=== PATIENT | male | born 1990 | race Caucasian/White ===

== ENCOUNTER 2025-08-07 07:03 | Observation (INO) ==
[2025-08-07] MEDS: MIDAZOLAM HCL 5 MG/ML 2ML VIAL IV STA (07:28)
--- NOTE | 2025-08-07 07:41 | Emergency Department Note ---
Impression & Plan Acute alteration in mental status, Drug intoxication with delirium, Alcohol intoxication, Aggressive behavior ED Provider Note NAME: JENNIFER GRIFFITH AGE: 34 SEX: M : 1990 ARRIVES VIA: Ambulance INFORMANT: Patient, EMS ED PROVIDER(S): Noah So DO CHIEF COMPLAINT: Altered mental status HPI: The patient is a 34-year-old male who presented to the emergency department with excited delirium. History is obtained from the prehospital personnel as well as the police. The police were called to his home because the patient had ripped the washing machine out of the wall. Water was spilling all over the basement. The patient's mother called 911. When police arrived they found him on the floor. He became very combative. EMS was called and the patient was treated with IM ketamine for excited delirium. The patient presents to the emergency department in obtunded state. He is unable to be evaluated at this time. There is no history of any recent trauma. There is no history of recent illness but the prehospital personnel were unable to speak with the mother for short period of time. ROS: See above HPI for pertinent positives & negatives. A total of 10 systems reviewed and were otherwise negative. PAST MEDICAL HISTORY: See Below PAST SURGICAL HISTORY: See Below FAMILY HISTORY: See Below SOCIAL HISTORY: See Below HOME MEDICATIONS: See Below ALLERGIES: See Below VITALS: See Below PHYSICAL EXAMINATION: GENERAL: The patient is obtunded and yelling out loudly. He is not verbalizing or making sentences that are comprehensible. EYES: The conjunctivae are clear. The pupils are dilated and minimally reactive. EARS, NOSE, MOUTH AND THROAT: The nose is without any evidence of any deformity. Mucous membranes are dry. NECK: The neck is nontender and supple. RESPIRATORY: Normal respiratory effort is noted there is no evidence of wheezing rhonchi or rales CARDIOVASCULAR: Tachycardic and regular heart sounds were noted to auscultation. GASTROINTESTINAL: The abdomen is soft. Abdomen is nontender. MUSCULOSKELETAL/EXTREMITIES: There is no evidence of gross deformity full range of motion is noted in the hips and shoulders. SKIN: The skin is hot and diaphoretic. There is no pedal edema. Pulses are symmetric. NEUROLOGIC: GCS is 11. The patient is moving all extremities. Patellar tendon reflexes were 3+ bilaterally. MEDICAL DECISION MAKING: The patient is a 34-year-old male who presented to the emergency department by ambulance for an evaluation of aggressive behavior and alteration of mental status. The patient was felt to be under the influence of drugs or alcohol. The patient was sedated using ketamine prior to arrival using the expected delirium protocol. Once the patient was more easily assessed IV line was placed and labs are drawn. The patient was reevaluated multiple times. It was unclear if there was any trauma involved with the patient's presentation. After the patient was found to have no acute intracranial process he was starting to become much more coherent. He did admit to using Magic mushrooms and attempt to become intoxicated. He also had alcohol in his system. The patient was started become more lucid but he was still not able to be medically cleared. I discussed the patient's condition with the on-call [facility]. They have agreed to evaluate the patient in the emergency department for further management and disposition. Triage Nursing notes reviewed. Prior medical records reviewed Vital Signs: reviewed and remarkable for elevated blood pressure. Differential diagnosis: Infection, hypoglycemia, electrolyte abnormalities, overdose, toxicologic, cardiac sources, intracerebral event, neurologic, trauma, as well as other pathologies. ER treatment provided: See below Diagnostics interpreted by me: ECG: EKG was obtained in the emergency department. My interpretation is normal sinus rhythm at 93 bpm. There is no ectopy. There is no acute ST segment abnormalities noted. QTc was 452 ms. Cardiac Monitoring: An order was placed for continuous cardiac monitoring. The monitor shows a rate of 81 bpm with sinus rhythm. Laboratory studies: As stated above and show below. Imaging studies: See below. Radiographic imaging was reviewed by myself Consultation(s): I discussed this case with Dr. Michaud who is on-call for the [facility] group. ED COURSE: Procedures: none Critical Care: I have personally spent greater than 45 minutes of critical care time in the direct management of this patient. This includes bedside care, interpretation of diagnostic studies, and testing, discussion with consultants, patient, and family members, and other required patient management activities. This 45 minutes is in excess of all separately billable procedures. Past Med/Surg History Problem List (Updated 08/07/25 @ 11:21 by Noah So DO) Aggressive behavior (Acute) Acute alteration in mental status (Acute) Alcohol intoxication (Acute) Drug intoxication with delirium (Acute) Chronic prescription opiate use Drug addiction No significant past surgical history No significant past medical history Social History Smoking Status: Unknown if ever smoked Tobacco Type: Cigarettes Preferred Language: Latvian marital status: Single current occupational status: employed Feels Safe at Home: Declines to Answer Allergies Allergies Allergy/AdvReac Type Severity Reaction Status Date / Time No Known Allergies Allergy Mild Verified 09/24/23 17:42 Home Meds Home Medications Medication Instructions Recorded Confirmed methadone 10 mg tablet 90 mg PO DAILY 08/07/25 08/07/25 Results & Data (ED) Vital Signs Vital Signs - 24 hr 08/07/25 07:05 08/07/25 07:05 08/07/25 07:12 Temperature 37.1 C Temperature Source Oral Pulse Rate 91 H 103 H Pulse Rate from SpO2 Sensor Respiratory Rate 28 H Respiratory Effort / Characteristics Non-Labored Spontaneous Respiratory Depth Shallow Blood Pressure Blood Pressure Mean Pulse Oximetry 88 L 88 L Oxygen Delivery Method Room Air Room Air Sepsis Recent Fever Within 48 Hours No Sepsis New/Unexplained Change in Mental Status No Sepsis Action Taken by Nursing No Action Required End-Tidal CO2 Oxygen Flow Rate - Titration Pulse Oximetry Post Tiitration 08/07/25 07:18 08/07/25 07:24 08/07/25 07:30 Temperature Temperature Source Pulse Rate 84 83 Pulse Rate from SpO2 Sensor 84 84 Respiratory Rate 22 16 Respiratory Effort / Characteristics Respiratory Depth Blood Pressure Blood Pressure Mean Pulse Oximetry 92 96 88 L Oxygen Delivery Method Room Air Sepsis Recent Fever Within 48 Hours Sepsis New/Unexplained Change in Mental Status Sepsis Action Taken by Nursing End-Tidal CO2 48 35 Oxygen Flow Rate - Titration 4 Pulse Oximetry Post Tiitration 96 08/07/25 07:31 08/07/25 07:54 08/07/25 08:15 Temperature Temperature Source Pulse Rate 87 Pulse Rate from SpO2 Sensor 87 90 Respiratory Rate 21 20 Respiratory Effort / Characteristics Respiratory Depth Blood Pressure 136/108 H Blood Pressure Mean 126 Pulse Oximetry 96 92 Oxygen Delivery Method Sepsis Recent Fever Within 48 Hours Sepsis New/Unexplained Change in Mental Status Sepsis Action Taken by Nursing End-Tidal CO2 56 Oxygen Flow Rate - Titration Pulse Oximetry Post Tiitration 08/07/25 08:23 08/07/25 08:30 08/07/25 08:30 Temperature Temperature Source Pulse Rate 85 Pulse Rate from SpO2 Sensor 89 Respiratory Rate Respiratory Effort / Characteristics Respiratory Depth Blood Pressure 170/118 H 180/115 H Blood Pressure Mean 132 137 Pulse Oximetry 93 Oxygen Delivery Method Sepsis Recent Fever Within 48 Hours Sepsis New/Unexplained Change in Mental Status Sepsis Action Taken by Nursing End-Tidal CO2 Oxygen Flow Rate - Titration Pulse Oximetry Post Tiitration 08/07/25 08:45 08/07/25 08:45 08/07/25 09:00 Temperature Temperature Source Pulse Rate 100 H 86 Pulse Rate from SpO2 Sensor 99 H 87 Respiratory Rate 13 16 Respiratory Effort / Characteristics Respiratory Depth Blood Pressure 196/145 H Blood Pressure Mean 165 Pulse Oximetry 93 92 Oxygen Delivery Method Sepsis Recent Fever Within 48 Hours Sepsis New/Unexplained Change in Mental Status Sepsis Action Taken by Nursing End-Tidal CO2 49 31 Oxygen Flow Rate - Titration Pulse Oximetry Post Tiitration 08/07/25 09:00 08/07/25 09:30 08/07/25 09:30 Temperature Temperature Source Pulse Rate 81 Pulse Rate from SpO2 Sensor 82 Respiratory Rate 14 Respiratory Effort / Characteristics Respiratory Depth Blood Pressure 166/96 H 142/93 H Blood Pressure Mean 115 118 Pulse Oximetry 94 Oxygen Delivery Method Sepsis Recent Fever Within 48 Hours Sepsis New/Unexplained Change in Mental Status Sepsis Action Taken by Nursing End-Tidal CO2 48 Oxygen Flow Rate - Titration Pulse Oximetry Post Tiitration Home Medications Current Medication List: was personally reviewed by me Laboratory Data Attestation: I reviewed the patient's lab results. 08/07/25 07:25 08/07/25 07:25 Lab Results 08/07/25 08/07/25 08/07/25 Range/Units 07:25 08:16 08:43 WBC 4.96 (4.8-10.8) K/ul RBC 4.91 (4.70-6.10) M/uL Hgb 16.5 (14.0-18.0) g/dl Hct 46.4 (42.0-52.0) % MCV 94.5 (80.0-100.0) fL MCH 33.6 (25.0-34.0) pg MCHC 35.6 (32.0-36.0) g/dL RDW Std Deviation 45.0 (36.4-46.3) fL RDW Coeff of Sheron 13.1 (11.5-14.5) % Plt Count 126 L (130-400) K/uL MPV 11.0 (9.4-12.4) fL Immature Gran % (Auto) 0.8 % Neut % (Auto) 70.6 % Lymph % (Auto) 14.1 % Stewart % (Auto) 12.3 % Eos % (Auto) 1.0 % Baso % (Auto) 1.2 % Neut # (Auto) 3.50 (1.40-6.50) K/uL Lymph # (Auto) 0.70 L (1.20-3.40) K/uL Stewart # (Auto) 0.61 H (0.11-0.59) K/uL Eos # (Auto) 0.05 (0.00-0.50) K/uL Baso # (Auto) 0.06 (0.00-0.20) K/uL Immature Gran # (Auto) 0.04 (0.01-0.20) K/uL PT 10.8 (9.0-12.0) Seconds INR 1.0 (0.9-1.1) APTT 30 (21-31) Seconds PTT Ratio 1.1 VBG pH 7.31 L (7.36-7.41) VBG pCO2 53 H (38-50) mmHg VBG pO2 48 mmHg VBG HCO3 27 mmol/L VBG O2 Saturation 79.9 % VBG Base Excess -0.8 mEq/L Sodium 138 (136-145) mmol/L Potassium 4.1 (3.5-5.1) mmol/L Chloride 103 (98-107) mmol/L Carbon Dioxide 25 (21-32) mmol/L Anion Gap 10 (3-11) BUN 13 (6-23) mg/dl Creatinine 1.02 (0.6-1.4) mg/dl Est Cr Clr Drug Dosing Not Reportable eGFR 99.52 BUN/Creatinine Ratio 12.7 (10-20) Glucose 96 (70-99(Fasting)) mg/dl Osmolality 342 H (280-300) mOsm/kg Calcium 9.3 (8.6-10.3) mg/dl Total Bilirubin 0.7 (0.2-1.0) mg/dl AST 73 H (13-39) U/L ALT 83 H (7-52) U/L Alkaline Phosphatase 106 H (34-104) U/L Total Creatine Kinase 382 H (30-223) U/L Troponin I High Sens 4.2 (0-20) pg/ml Total Protein 8.1 (6.0-8.3) gm/dl Albumin 4.7 (3.4-5.0) gm/dl Globulin 3.4 (2.5-4.0) gm/dl Albumin/Globulin Ratio 1.4 (0.9-2) Lipase 12 (11-82) U/L Procalcitonin 0.06 (0-0.5) ng/ml Urine Color Yellow Urine Appearance Clear (Clear) Urine pH 6.0 (4.5-7.5) Ur Specific [place] 1.044 H (1.000-1.030) Urine Protein 1+ H (Negative) Urine Glucose (UA) Negative (Negative) Urine Ketones Negative (Negative) Urine Blood 2+ H (Negative) Urine Nitrite Negative (Negative) Urine Bilirubin Negative (Negative) Urine Urobilinogen Negative (Negative) Ur Leukocyte Esterase Negative (Negative) Urine WBC (Auto) 0-5 (0-5) /hpf Urine RBC (Auto) 0-2 (0-2) /hpf U Hyaline Cast (Auto) 3-5 H (0-2) /lpf U Epithel Cells (Auto) 0-2 (0-2) /hpf Urine Bacteria (Auto) None Seen (None Seen) Urine Comment Salicylates < 3.0 L (3.0-30) mg/dl Urine Opiates Screen Neg (Neg) Ur Methadone, Qual Pos H (Neg) Urine Fentanyl Screen Neg (Neg) Acetaminophen < 3 L (10-30) ug/ml Urine Barbiturates Neg (Neg) Ur Phencyclidine (PCP) Neg (Neg) U Amphetamin/Meth Scrn Neg (Neg) MDMA (Ecstasy) Screen Neg (Neg) U Benzodiazepines Scrn Pos H (Neg) Ur Cocaine Metabolite Neg (Neg) U Marijuana (THC) Screen Neg (Neg) Ethyl Alcohol mg/dL 145.2 H (<10.0) mg/dl Administered Medications Discontinued Medications Thiamine HCl 500 mg/ Sodium (Chloride) 55 mls @ 210 mls/hr IV NOW STA Stop: 08/07/25 08:40 Last Infusion: 08/07/25 10:59 Dose: Infused Documented By: Admin: 08/07/25 09:21 Dose: 210 mls/hr Documented By: MICHELLE Sodium Chloride (Nss) 1,000 mls @ 999 mls/hr IV .Q1H1M ONE Stop: 08/07/25 09:31 Last Infusion: 08/07/25 10:59 Dose: Infused Documented By: Admin: 08/07/25 09:21 Dose: 999 mls/hr Documented By: MICHELLE Ioversol (Optiray 320 100ml) 94 ml IV ONCE ONE Stop: 08/07/25 07:55 Last Admin: 08/07/25 07:54 Dose: 94 ml Documented By: WALT Midazolam HCl (Midazolam Hcl 5 Mg/Ml 2ml Vial) 4 mg IV NOW STA Stop: 08/07/25 07:20 Last Admin: 08/07/25 07:28 Dose: 2 mg Documented By: CEF Imaging Data Attestation: I personally reviewed and interpreted this imaging study as follows: My Impression: 1 view chest x-ray was obtained in the emergency department. My interpretation is no free air or definite infiltrate, final report below. CT the brain was obtained in the emergency department. My interpretation is no intracranial hemorrhage or mass effect, final report below. Radiologist's Impression: Abdomen/Pelvis CT 08/07/25 07:10 CT SCAN OF THE ABDOMEN AND PELVIS WITH IV CONTRAST CLINICAL HISTORY: Trauma. COMPARISON STUDY: CT of the abdomen and pelvis June 25, 2007. TECHNIQUE: Following the IV administration of 94 cc of Optiray 320, CT scan of the abdomen and pelvis is performed from the lung bases to the proximal femora. Images are reviewed in the axial, sagittal, and coronal planes. IV contrast was administered without complication. A dose lowering technique was utilized adhering to the principles of ALARA. FINDINGS: This exam is mildly compromised by motion artifact. No hemoperitoneum or pneumoperitoneum is present. There is no evidence for traumatic injury to the liver, spleen, adrenal glands, kidneys or pancreas. Mild splenomegaly is similar to prior CT. Prominent peripancreatic and brittany hepatis lymph nodes are likely benign. Index peripancreatic lymph node on image 108 of 449 measures 2.4 x 1.4 cm. These nodes were normal in size on prior CT. Caliber and wall thickness of small and large bowel are normal. There is no pelvic lymphadenopathy. No acute fractures within the lumbar spine, pelvis or hips are identified. IMPRESSION: 1. No acute traumatic findings within the abdomen or pelvis. Exam mildly compromised by motion artifact. 2. Several mildly enlarged upper abdominal lymph nodes. These are likely benign. A follow-up CT of the abdomen and pelvis in 6 months to ensure stability is recommended. 3. Stable mild splenomegaly. ACT 112: Negative or not required by law. Electronically signed by: Melvin Carvajal M.D. 08/07/2025 9:[address] 08/07/25 07:10 CT SCAN OF THE CERVICAL SPINE CLINICAL HISTORY: Trauma. COMPARISON STUDY: Cervical spine CT June 25, 2007. TECHNIQUE: CT scan of the cervical spine is performed from the skull base to the upper thoracic spine. Images are reviewed in the axial, sagittal, and coronal planes. IV contrast was not administered for this examination. A dose lowering technique was utilized adhering to the principles of ALARA. CT DOSE: 1682.2 mGy.cm FINDINGS: Skeletal structures: This exam is mildly compromised given difficulty positioning. There is no evidence of fracture or subluxation involving the cervical spine. Vertebral body height and alignment are maintained. The odontoid process and lateral masses are intact. The atlantoaxial articulation is preserved. The spinous processes appear intact. Corticated lucency through the T1 spinous process is unchanged. This is chronic. There is mild multilevel disc space narrowing and endplate osteophytosis within the cervical spine. Soft tissues: The prevertebral and paraspinous soft tissues are within normal limits. Calvarium: The visualized calvarium at the skull base appears intact. Brain parenchyma: Partially visualized brain parenchyma at the skull base is within normal limits. Lung apices: Clear as visualized. IMPRESSION: No acute cervical spine fracture or subluxation. Exam mildly compromised given difficulty positioning. ACT 112: Negative or not required by law. Electronically signed by: Melvin Carvajal M.D. 08/07/2025 8:[address] 08/07/25 07:10 CT SCAN OF THE CHEST WITH IV CONTRAST CLINICAL HISTORY: Trauma. COMPARISON STUDY: Chest CT June 25, 2007. TECHNIQUE: Following the IV administration of cc of Optiray 320, CT scan of the thorax was performed from the thoracic inlet to the upper abdomen. Images are reviewed in the axial, sagittal, and coronal planes. IV contrast was administered without complication. A dose lowering technique was utilized adhering to the principles of ALARA. CT DOSE: 2818.48 mGy.cm FINDINGS: There is no evidence for traumatic injury to the thoracic aorta. Size of the heart is normal. There is no pericardial effusion. No pneumothorax, pleural effusion or pulmonary contusion is present. No rib fractures are identified although sensitivity is diminished given motion artifact.. There are no thoracic spine fractures. IMPRESSION: No acute traumatic findings within the chest. Exam mildly compromised by motion artifact. ACT 112: Negative or not required by law. Electronically signed by: Melvin Carvajal M.D. 08/07/2025 8:57 AM Chest X-Ray 08/07/25 07:10 PORTABLE SUPINE AP CHEST RADIOGRAPH CLINICAL HISTORY: Trauma COMPARISON STUDY: Chest CT June 25, 2007. Chest radiograph May 06, 2015. Chest CT performed earlier today. FINDINGS: No pneumothorax or pleural effusion is identified on supine exam. Low lung volumes are likely related to supine technique. No airspace opacities are present. Cardiac mediastinal silhouette is unremarkable IMPRESSION: No acute cardiopulmonary findings. ACT 112: Negative or not required by law. Electronically signed by: Melvin Carvajal M.D. 08/07/2025 8:[address] 08/07/25 07:10 CT SCAN OF THE BRAIN WITHOUT IV CONTRAST CLINICAL HISTORY: Trauma. COMPARISON STUDY: Head CT June 25, 2007. TECHNIQUE: Unenhanced axial CT scan of the brain was performed from the vertex to the skull base. A dose lowering technique was utilized adhering to the principles of ALARA. FINDINGS: This exam is moderately compromised by motion artifact. No acute intracranial hemorrhage, midline shift or mass effect is present. Ventricular system is unremarkable. Basal cisterns are patent. There are no extra-axial collections. A small posterior scalp contusion is present. There is no calvarial fracture. There is mild ethmoid sinus mucosal thickening. IMPRESSION: 1. No acute intracranial findings. Moderate motion artifact. 2. Small posterior scalp contusion. No calvarial fractures. ACT 112: Negative or not required by law. Electronically signed by: Melvin Carvajal M.D. 08/07/2025 8:48 AM Wrist X-Ray 08/07/25 10:14 XR wrist RT min 3V routine CLINICAL HISTORY: Right wrist pain and swelling following trauma. COMPARISON: Right hand radiographs April 19, 2024. FINDINGS: Old, healed fractures of the right fourth and fifth metacarpals are noted. There is distal right forearm and wrist soft tissue swelling. A tiny ossicle along the medial distal right radius is unchanged since radiographs of April 19, 2024. No acute fractures within the right wrist are identified. Carpal bones are intact. IMPRESSION: 1. No acute fracture or dislocation within the right wrist. 2. Distal right forearm and wrist soft tissue swelling. 3. Old, healed right fourth and fifth metacarpal fractures. ACT 112: Negative or not required by law. Electronically signed by: Melvin Carvajal M.D. 08/07/2025 10:41 AM Elbow X-Ray 08/07/25 10:18 XR elbow RT min 3V routine CLINICAL HISTORY: Right elbow pain following trauma. COMPARISON: Right forearm radiographs September 24, 2023. FINDINGS: Alignment of the right elbow is anatomic. There is no acute fracture. There is no evidence for a joint effusion. Joint spaces are preserved. IMPRESSION: No fractures within the right elbow. No evidence for a joint effusion. ACT 112: Negative or not required by law. Electronically signed by: Melvin Carvajal M.D. 08/07/2025 10:34 AM Forearm X-Ray 08/07/25 10:18 XR forearm RT 2V CLINICAL HISTORY: Right forearm pain following trauma. COMPARISON: Right forearm radiographs 09/24/2023. FINDINGS: There are no fractures within the right radius or ulna. Alignment of the right elbow is anatomic. There is no evidence for joint effusion. There are old fractures of the right fourth and fifth metacarpals. Slight deformity of the distal right radius is likely chronic. There is distal right forearm and wrist soft tissue swelling. IMPRESSION: 1. No acute fractures within the right radius or ulna. 2. Distal right forearm and wrist soft tissue swelling. ACT 112: Negative or not required by law. Electronically signed by: Melvin Carvajal M.D. 08/07/2025 10:39 AM Discharge Plan Visit Data Chief Complaint: Mental Health Evaluation ED Provider: Noah So Discharge Problem: Acute alteration in mental status, Drug intoxication with delirium, Alcohol intoxication, Aggressive behavior Patient Disposition: Admitted As Inpatient Condition: Fair Discharge Instructions Interventions: ED Discharge Assessment Last Done: 08/07/25 10:59 Forms Stand Alone Forms: [facility], Suicide Prevention Resources Prescriptions Prescriptions: No Action methadone 10 mg Tablet 90 mg PO DAILY Referrals Referrals: PCP,NO [Primary Care Provider] -
[2025-08-07 07:47] LABS: Hematocrit (blood only) 46.4 % (42.0-52.0); Hemoglobin 16.5 g/dl (14.0-18.0); Immature Granulocytes # (auto) 0.04 K/uL (0.01-0.20); Immature Granulocytes % (auto) 0.8 %; Mean Corpuscular Hemoglobin 33.6 pg (25.0-34.0); Mean Corpuscular Volume 94.5 fL (80.0-100.0); Platelet Count 126 K/uL (130-400); RDW Standard Deviation 45.0 fL (36.4-46.3); Red Blood Count 4.91 M/uL (4.70-6.10); White Blood Count 4.96 K/ul (4.8-10.8)
[2025-08-07] MEDS: OPTIRAY 320 100ml IV ONE (07:54)
[2025-08-07 08:06] LABS: Alanine Aminotransferase 83 U/L (7-52); Albumin Globulin Ratio 1.4 (0.9-2); Alkaline Phosphatase 106 U/L (34-104); Anion Gap 10 (3-11); Bilirubin,Total 0.7 mg/dl (0.2-1.0); Blood Urea Nitrogen 13 mg/dl (6-23); Calcium 9.3 mg/dl (8.6-10.3); Carbon Dioxide 25 mmol/L (21-32); Chloride 103 mmol/L (98-107); Creatine Kinase 382 U/L (30-223); Globulin 3.4 gm/dl (2.5-4.0); Glucose 96 mg/dl (70-99(Fasting)); Lipase 12 U/L (11-82); Potassium 4.1 mmol/L (3.5-5.1); Sodium 138 mmol/L (136-145); Total Protein 8.1 gm/dl (6.0-8.3)
[2025-08-07 08:19] LABS: INR 1.0 (0.9-1.1); Partial Thromboplastin Time 30 Seconds (21-31); Prothrombin Time 10.8 Seconds (9.0-12.0)
[2025-08-07 08:34] LABS: Base Excess VBG -0.8 mEq/L; HCO3 VBG 27 mmol/L; Oxygen Saturation VBG 79.9 %; PCO2 VBG 53 mmHg (38-50); PO2 VBG 48 mmHg; pH VBG 7.31 (7.36-7.41)
--- NOTE | 2025-08-07 08:44 | XRay Report ---
PORTABLE SUPINE AP CHEST RADIOGRAPH CLINICAL HISTORY: Trauma COMPARISON STUDY: Chest CT June 25, 2007. Chest radiograph May 06, 2015. Chest CT performed earlier today. FINDINGS: No pneumothorax or pleural effusion is identified on supine exam. Low lung volumes are like ly related to supine technique. No airspace opacities are present. Cardiac mediastinal silhouette is unremarkable IMPRESSION: No acute cardiopulmonary findings. ACT 112: Negative or not required by law. Electronically signed by: Melvin Carvajal M.D. 08/07/2025 8:43 AM
--- NOTE | 2025-08-07 08:51 | CT Scan Report ---
CT SCAN OF THE BRAIN WITHOUT IV CONTRAST CLINICAL HISTORY: Trauma. COMPARISON STUDY: Head CT June 25, 2007. TECHNIQUE: Unenhanced axial CT scan of the brain was performed from the vertex to the skull base. A dose lowering technique was utilized adhering to the principles of ALARA. FINDINGS: This exam is moderately compromised by motion artifact. No acute intracranial hemorrhage, m idline shift or mass effect is present. Ventricular system is unremarkable. Basal cisterns are patent . There are no extra-axial collections. A small posterior scalp contusion is present. There is no elsie varial fracture. There is mild ethmoid sinus mucosal thickening. IMPRESSION: 1. No acute intracranial findings. Moderate motion artifact. 2. Small posterior scalp contusion. No calvarial fractures. ACT 112: Negative or not required by law. Electronically signed by: Melvin Carvajal M.D. 08/07/2025 8:48 AM
--- NOTE | 2025-08-07 08:52 | CT Scan Report ---
CT SCAN OF THE CERVICAL SPINE CLINICAL HISTORY: Trauma. COMPARISON STUDY: Cervical spine CT June 25, 2007. TECHNIQUE: CT scan of the cervical spine is performed from the skull base to the upper thoracic spine . Images are reviewed in the axial, sagittal, and coronal planes. IV contrast was not administered fo r this examination. A dose lowering technique was utilized adhering to the principles of ALARA. CT DOSE: 1682.2 mGy.cm FINDINGS: Skeletal structures: This exam is mildly compromised given difficulty positioning. There is no eviden ce of fracture or subluxation involving the cervical spine. Vertebral body height and alignment are m aintained. The odontoid process and lateral masses are intact. The atlantoaxial articulation is pres erved. The spinous processes appear intact. Corticated lucency through the T1 spinous process is unch anged. This is chronic. There is mild multilevel disc space narrowing and endplate osteophytosis with in the cervical spine. Soft tissues: The prevertebral and paraspinous soft tissues are within normal limits. Calvarium: The visualized calvarium at the skull base appears intact. Brain parenchyma: Partially visualized brain parenchyma at the skull base is within normal limits. Lung apices: Clear as visualized. IMPRESSION: No acute cervical spine fracture or subluxation. Exam mildly compromised given difficulty positioning. ACT 112: Negative or not required by law. Electronically signed by: Melvin Carvajal M.D. 08/07/2025 8:51 AM
--- NOTE | 2025-08-07 08:59 | CT Scan Report ---
CT SCAN OF THE CHEST WITH IV CONTRAST CLINICAL HISTORY: Trauma. COMPARISON STUDY: Chest CT June 25, 2007. TECHNIQUE: Following the IV administration of cc of Optiray 320, CT scan of the thorax was performed from the thoracic inlet to the upper abdomen. Images are reviewed in the axial, sagittal, and coronal planes. IV contrast was administered without complication. A dose lowering technique was utilized a dhering to the principles of ALARA. CT DOSE: 2818.48 mGy.cm FINDINGS: There is no evidence for traumatic injury to the thoracic aorta. Size of the heart is zaria l. There is no pericardial effusion. No pneumothorax, pleural effusion or pulmonary contusion is pres ent. No rib fractures are identified although sensitivity is diminished given motion artifact.. There are no thoracic spine fractures. IMPRESSION: No acute traumatic findings within the chest. Exam mildly compromised by motion artifact. ACT 112: Negative or not required by law. Electronically signed by: Melvin Carvajal M.D. 08/07/2025 8:57 AM
[2025-08-07 09:10] LABS: Appearance Urine Clear (Clear); Bacteria Urine Automated None Seen (None Seen); Epithelial Cell Urine Auto 0-2 /hpf (0-2); Glucose Urine UA Negative (Negative); RBC Urine Automated 0-2 /hpf (0-2); WBC Urine Automated 0-5 /hpf (0-5)
--- NOTE | 2025-08-07 09:10 | CT Scan Report ---
CT SCAN OF THE ABDOMEN AND PELVIS WITH IV CONTRAST CLINICAL HISTORY: Trauma. COMPARISON STUDY: CT of the abdomen and pelvis June 25, 2007. TECHNIQUE: Following the IV administration of 94 cc of Optiray 320, CT scan of the abdomen and pelvi s is performed from the lung bases to the proximal femora. Images are reviewed in the axial, sagittal , and coronal planes. IV contrast was administered without complication. A dose lowering technique wa s utilized adhering to the principles of ALARA. FINDINGS: This exam is mildly compromised by motion artifact. No hemoperitoneum or pneumoperitoneum i s present. There is no evidence for traumatic injury to the liver, spleen, adrenal glands, kidneys or pancreas. Mild splenomegaly is similar to prior CT. Prominent peripancreatic and brittany hepatis lymph nodes are likely benign. Index peripancreatic lymph node on image 108 of 449 measures 2.4 x 1.4 cm. These nodes were normal in size on prior CT. Caliber and wall thickness of small and large bowel are normal. There is no pelvic lymphadenopathy. No acute fractures within the lumbar spine, pelvis or hip s are identified. IMPRESSION: 1. No acute traumatic findings within the abdomen or pelvis. Exam mildly compromised by motion artifa ct. 2. Several mildly enlarged upper abdominal lymph nodes. These are likely benign. A follow-up CT of th e abdomen and pelvis in 6 months to ensure stability is recommended. 3. Stable mild splenomegaly. ACT 112: Negative or not required by law. Electronically signed by: Melvin Carvajal M.D. 08/07/2025 9:08 AM
[2025-08-07] MEDS: SODIUM CHLORIDE 0.9% 1,000 ML IV ONE (09:21)
[2025-08-07] MEDS: THIAMINE HCL 500 MG in SODIUM CHLORIDE 0.9% 50 ML IV STA (09:21)
[2025-08-07 09:30] LABS: Acetaminophen < 3 ug/ml (10-30); Salicylate < 3.0 mg/dl (3.0-30)
[2025-08-07 09:33] LABS: Amphetamines+Metham, Urine Neg (Neg); MDMA (Ecstacy), Urine Neg (Neg); Marijuana, Urine Neg (Neg)
--- NOTE | 2025-08-07 10:34 | History & Physical Report ---
Date of Service August 07, 2025 Assessment & Plan (1) Chronic prescription opiate use: (2) Drug intoxication with delirium: (3) Alcohol intoxication: Plan 34 year old male presents to the ER with altered mental status, agitation, given ketamine by EMS Altered mental state Secondary to taking mushrooms, alcohol intoxication and ketamine with EMS Improved dramatically over hours and now appears awake and alert, diet ordered Will continue to observe overnight Alcohol use disorder / current intoxication Monitor for alcohol withdrawal Opiate use disorder Restart methadone now patient more awake Mild rhabdomyolysis CK 382, IV fluids, repeat with AM labs VTE Prophylaxis - low risk, encourage ambulation Disposition - admit to PCU Admission and Anticipated Discharge Date Admission Date: August 07, 2025 History of Present Illness Chief Complaint: Altered mental status Primary Care Provider: NO PCP Brock Garrison is a 34 year old male who presents to the ER due to agitation. When patient initially seen he was unable to give any story, following one step commands, eyes blood shot, pupils dilated with horizontal bilateral nystagmus in both eyes, some rigidity but no clonus. On repeat examination he had woken up, agitation and rigidity resolved. He reports he drinks a 6 pack of 8% beer a day, never had any issues with alcohol withdrawal. He thinks last night he drank alcohol and took mushrooms but cannot remember what happened this morning. No answer on mothers phone with number in chart for collateral history. Collateral history from ER physician and ambulance notes - police called to his house by his mother because the patient ripped the washing machine out of the wall, water spilling all over basement, mother called 911, found on floor by police and became combative, EMS called and treated with IM ketamine - obtunded when he first came to the ER. Allergies Allergy/AdvReac Type Severity Reaction Status Date / Time No Known Allergies Allergy Mild Verified 09/24/23 17:42 Home Medications Medication Instructions Recorded Confirmed Type methadone 10 mg tablet 90 mg PO DAILY 08/07/25 08/07/25 History Past Med/Surg History Problem List (Updated 08/07/25 @ 11:21 by Noah So DO) Aggressive behavior (Acute) Acute alteration in mental status (Acute) Alcohol intoxication (Acute) Drug intoxication with delirium (Acute) Chronic prescription opiate use Drug addiction No significant past surgical history No significant past medical history Social History Smoking Status: Current every day smoker Tobacco Type: Cigarettes Hx Alcohol Use: Yes Alcohol type: beer Hx Substance Use: Yes Last Used Substance Other:: 08/07 Substance Use Type Other:: mushrooms Preferred Language: Turkish Communication Ability: Effective Quality Systems Technician Required: No Beliefs That Will Affect Care: None marital status: Single Current Living Situation: Family current occupational status: employed Feels Safe at Home: Yes Safety Concerns: Feels Safe At This Time Assistive Devices: None Review of Systems Review of Systems: Unobtainable due to cognitive status Physical Exam Constitutional: well developed and + acute distress Eyes: pupils bilaterally dilated - unable to tell reaction as patient actively closing eyes, erythematous bilateral conjunctiva Respiratory: normal respiratory effort, lungs clear to auscultation Cardiovascular: Rate/Rhythm: regular rhythm and + tachycardic Gastrointestinal (Abdomen): normal bowel sounds, soft, nontender, no hepatosplenomegaly Neurologic: moves all extremities (following one step commands), awake and + confused Cranial Nerves: normal facial strength; + EOM not intact (bilateral horizontal nystagmus present) Generalized rigiditiy Psychiatric: Orientation: alert; + not oriented x 3 Results & Data Results & Data Vital Signs (Past 12 Hours) Vital Signs Temp Pulse Resp BP Pulse Ox O2 Del Method 08/07/25 09:30 81 14 94 08/07/25 09:30 142/93 H 08/07/25 09:00 166/96 H 08/07/25 09:00 86 16 92 08/07/25 08:45 100 H 13 93 08/07/25 08:45 196/145 H 08/07/25 08:30 180/115 H 08/07/25 08:30 85 93 08/07/25 08:23 170/118 H 08/07/25 08:15 87 20 92 08/07/25 07:54 21 96 08/07/25 07:31 136/108 H 08/07/25 07:30 88 L Room Air 08/07/25 07:24 83 16 96 08/07/25 07:18 84 22 92 08/07/25 07:12 103 H 08/07/25 07:05 88 L Room Air 08/07/25 07:05 37.1 C 91 H 28 H 88 L Room Air Laboratory Results Abnormal lab results 08/07/25 08/07/25 08/07/25 Range/Units 07:25 08:16 08:43 Plt Count 126 L (130-400) K/uL Lymph # (Auto) 0.70 L (1.20-3.40) K/uL [place] # (Auto) 0.61 H (0.11-0.59) K/uL VBG pH 7.31 L (7.36-7.41) VBG pCO2 53 H (38-50) mmHg Osmolality 342 H (280-300) mOsm/kg AST 73 H (13-39) U/L ALT 83 H (7-52) U/L Alkaline Phosphatase 106 H (34-104) U/L Total Creatine Kinase 382 H (30-223) U/L Ur Specific [place] 1.044 H (1.000-1.030) Urine Protein 1+ H (Negative) Urine Blood 2+ H (Negative) U Hyaline Cast (Auto) 3-5 H (0-2) /lpf Salicylates < 3.0 L (3.0-30) mg/dl Ur Methadone, Qual Pos H (Neg) Acetaminophen < 3 L (10-30) ug/ml U Benzodiazepines Scrn Pos H (Neg) Ethyl Alcohol mg/dL 145.2 H (<10.0) mg/dl Diagnostic Findings CT SCAN OF THE BRAIN WITHOUT IV CONTRAST CLINICAL HISTORY: Trauma. COMPARISON STUDY: Head CT June 25, 2007. TECHNIQUE: Unenhanced axial CT scan of the brain was performed from the vertex to the skull base. A dose lowering technique was utilized adhering to the principles of ALARA. FINDINGS: This exam is moderately compromised by motion artifact. No acute intracranial hemorrhage, midline shift or mass effect is present. Ventricular system is unremarkable. Basal cisterns are patent. There are no extra-axial collections. A small posterior scalp contusion is present. There is no calvarial fracture. There is mild ethmoid sinus mucosal thickening. IMPRESSION: 1. No acute intracranial findings. Moderate motion artifact. 2. Small posterior scalp contusion. No calvarial fractures. CT SCAN OF THE CERVICAL SPINE CLINICAL HISTORY: Trauma. COMPARISON STUDY: Cervical spine CT June 25, 2007. TECHNIQUE: CT scan of the cervical spine is performed from the skull base to the upper thoracic spine. Images are reviewed in the axial, sagittal, and coronal planes. IV contrast was not administered for this examination. A dose lowering technique was utilized adhering to the principles of ALARA. CT DOSE: 1682.2 mGy.cm FINDINGS: Skeletal structures: This exam is mildly compromised given difficulty positioning. There is no evidence of fracture or subluxation involving the cervical spine. Vertebral body height and alignment are maintained. The odontoid process and lateral masses are intact. The atlantoaxial articulation is preserved. The spinous processes appear intact. Corticated lucency through the T1 spinous process is unchanged. This is chronic. There is mild multilevel disc space narrowing and endplate osteophytosis within the cervical spine. Soft tissues: The prevertebral and paraspinous soft tissues are within normal limits. Calvarium: The visualized calvarium at the skull base appears intact. Brain parenchyma: Partially visualized brain parenchyma at the skull base is within normal limits. Lung apices: Clear as visualized. IMPRESSION: No acute cervical spine fracture or subluxation. Exam mildly compromised given difficulty positioning. PORTABLE SUPINE AP CHEST RADIOGRAPH CLINICAL HISTORY: Trauma COMPARISON STUDY: Chest CT June 25, 2007. Chest radiograph May 06, 2015. Chest CT performed earlier today. FINDINGS: No pneumothorax or pleural effusion is identified on supine exam. Low lung volumes are likely related to supine technique. No airspace opacities are present. Cardiac mediastinal silhouette is unremarkable IMPRESSION: No acute cardiopulmonary findings. CT SCAN OF THE CHEST WITH IV CONTRAST CLINICAL HISTORY: Trauma. COMPARISON STUDY: Chest CT June 25, 2007. TECHNIQUE: Following the IV administration of cc of Optiray 320, CT scan of the thorax was performed from the thoracic inlet to the upper abdomen. Images are reviewed in the axial, sagittal, and coronal planes. IV contrast was administered without complication. A dose lowering technique was utilized adhering to the principles of ALARA. CT DOSE: 2818.48 mGy.cm FINDINGS: There is no evidence for traumatic injury to the thoracic aorta. Size of the heart is normal. There is no pericardial effusion. No pneumothorax, pleural effusion or pulmonary contusion is present. No rib fractures are identified although sensitivity is diminished given motion artifact.. There are no thoracic spine fractures. IMPRESSION: No acute traumatic findings within the chest. Exam mildly compromised by motion artifact. CT SCAN OF THE ABDOMEN AND PELVIS WITH IV CONTRAST CLINICAL HISTORY: Trauma. COMPARISON STUDY: CT of the abdomen and pelvis June 25, 2007. TECHNIQUE: Following the IV administration of 94 cc of Optiray 320, CT scan of the abdomen and pelvis is performed from the lung bases to the proximal femora. Images are reviewed in the axial, sagittal, and coronal planes. IV contrast was administered without complication. A dose lowering technique was utilized adhering to the principles of ALARA. FINDINGS: This exam is mildly compromised by motion artifact. No hemoperitoneum or pneumoperitoneum is present. There is no evidence for traumatic injury to the liver, spleen, adrenal glands, kidneys or pancreas. Mild splenomegaly is similar to prior CT. Prominent peripancreatic and brittany hepatis lymph nodes are likely benign. Index peripancreatic lymph node on image 108 of 449 measures 2.4 x 1.4 cm. These nodes were normal in size on prior CT. Caliber and wall thickness of small and large bowel are normal. There is no pelvic lymphadenopathy. No acute fractures within the lumbar spine, pelvis or hips are identified. IMPRESSION: 1. No acute traumatic findings within the abdomen or pelvis. Exam mildly compromised by motion artifact. 2. Several mildly enlarged upper abdominal lymph nodes. These are likely benign. A follow-up CT of the abdomen and pelvis in 6 months to ensure stability is recommended. 3. Stable mild splenomegaly. Medications Administered ER Medications Given: Midazolam 2mg IV ECG Rate (beats per minute): 93 Rhythm: normal sinus Findings: no acute ischemic change Comparison ECG Date: from (12 May 2024) Change: the following changes noted (Diffuse TWI no longer present) Code Status & VTE Plan Code Status Full VTE Prophylaxis Plan VTE Prophylaxis will be ordered: No PG Care Time/CCT Total # of Minutes Spent Total Time Spent with Patient: Total time spent is greater than 50% in coordination of care (as documented) at patient's floor/unit and/or counseling patient: Coding Level of Care Code 98349 INT INP/OBS CARE 3/75MIN Diagnoses Chronic prescription opiate use Z79.891 Drug intoxication with delirium F19.921 Alcohol intoxication F10.929
--- NOTE | 2025-08-07 10:37 | XRay Report ---
XR elbow RT min 3V routine CLINICAL HISTORY: Right elbow pain following trauma. COMPARISON: Right forearm radiographs September 24, 2023. FINDINGS: Alignment of the right elbow is anatomic. There is no acute fracture. There is no evidence for a joint effusion. Joint spaces are preserved. IMPRESSION: No fractures within the right elbow. No evidence for a joint effusion. ACT 112: Negative or not required by law. Electronically signed by: Melvin Carvajal M.D. 08/07/2025 10:34 AM
--- NOTE | 2025-08-07 10:41 | XRay Report ---
XR forearm RT 2V CLINICAL HISTORY: Right forearm pain following trauma. COMPARISON: Right forearm radiographs 09/24/2023. FINDINGS: There are no fractures within the right radius or ulna. Alignment of the right elbow is an atomic. There is no evidence for joint effusion. There are old fractures of the right fourth and fift h metacarpals. Slight deformity of the distal right radius is likely chronic. There is distal right f orearm and wrist soft tissue swelling. IMPRESSION: 1. No acute fractures within the right radius or ulna. 2. Distal right forearm and wrist soft tissue swelling. ACT 112: Negative or not required by law. Electronically signed by: Melvin Carvajal M.D. 08/07/2025 10:39 AM
--- NOTE | 2025-08-07 10:42 | XRay Report ---
XR wrist RT min 3V routine CLINICAL HISTORY: Right wrist pain and swelling following trauma. COMPARISON: Right hand radiographs April 19, 2024. FINDINGS: Old, healed fractures of the right fourth and fifth metacarpals are noted. There is distal right forearm and wrist soft tissue swelling. A tiny ossicle along the medial distal right radius is unchanged since radiographs of April 19, 2024. No acute fractures within the right wrist are identifie d. Carpal bones are intact. IMPRESSION: 1. No acute fracture or dislocation within the right wrist. 2. Distal right forearm and wrist soft tissue swelling. 3. Old, healed right fourth and fifth metacarpal fractures. ACT 112: Negative or not required by law. Electronically signed by: Melvin Carvajal M.D. 08/07/2025 10:41 AM
[2025-08-07] MEDS: METHADONE HCL 10 MG TAB PO SCH (11:58)
[2025-08-07] MEDS: LACTATED RINGER'S 1,000 ML IV SCH (12:19)
--- NOTE | 2025-08-07 13:04 | Electrocardiogram Report ---
Test Reason : Blood Pressure : */* mmHG Vent. Rate : 93 BPM Atrial Rate : 93 BPM P-R Int : 160 ms QRS Dur : 94 ms QT Int : 364 ms P-R-T Axes : 57 82 47 degrees QTcB Int : 452 ms Poor data quality, interpretation may be adversely affected Normal sinus rhythm Normal ECG When compared with ECG of 11-Jun-2024 11:16, Vent. rate has increased by 35 bpm T wave inversion no longer evident in Inferior leads T wave inversion no longer evident in Lateral leads Confirmed by Noah Greene ([id number]) on 08/07/2025 1:04:03 PM Referred By: Confirmed By: Noah Greene
[2025-08-08 03:40] VITALS: TEMP 97.9; O2SAT 98
[2025-08-08 07:29] LABS: Alanine Aminotransferase 61.0 U/L (7-52); Albumin Globulin Ratio 1.3 (0.9-2); Alkaline Phosphatase 92.0 U/L (34-104); Anion Gap 3.0 (3-11); Bilirubin,Total 1.3 mg/dl (0.2-1.0); Blood Urea Nitrogen 11.0 mg/dl (6-23); Calcium 9.3 mg/dl (8.6-10.3); Carbon Dioxide 32.0 mmol/L (21-32); Chloride 105.0 mmol/L (98-107); Creatine Kinase 460.0 U/L (30-223); Creatinine Clr Calc Pharmacy 205.2 ml/min; Globulin 2.9 gm/dl (2.5-4.0); Glucose 113.0 mg/dl (70-99(Fasting)); Potassium 4.0 mmol/L (3.5-5.1); Sodium 140.0 mmol/L (136-145); Total Protein 6.8 gm/dl (6.0-8.3)
[2025-08-08 07:37] VITALS: RESP 20
[2025-08-08] MEDS: THIAMINE HCL 100 MG TAB PO SCH (08:45)
[2025-08-08] MEDS: LACTATED RINGER'S 1,000 ML IV SCH (08:45)
[2025-08-08] MEDS: LORazepam 0.5 MG TAB PO STA (10:46)
--- NOTE | 2025-08-08 11:09 | Discharge Summary ---
Discharge Summary Date of Service August 08, 2025 Principal Dx & Hospital Course #1 = Principal Diagnosis (1) Chronic prescription opiate use: (2) Drug intoxication with delirium: (3) Alcohol intoxication: (4) Right wrist pain: Plan Brock Garrison is a 34 year old male admitted to [facility] from August 07 - 2024 due to alcohol and drug intoxication (mushrooms). He was given ketamine by EMS, treated with midazolam in the emergency room and rapidly recovered. He was also diagnosed with mild rhabdomyolysis treated with intravenous fluids and recommend he continues to drink plenty of fluid. He has a soft tissue injury to his right wrist (XR did not show fracture). Recommend he uses rest, ice and ibuprofen as needed for this. Notes For Next Care Provider Follow up alcohol use disorder Follow up right wrist injury Medication Changes From Visit None Admission HPI Per Admitting Provider Brock Garrison is a 34 year old male who presents to the ER due to agitation. When patient initially seen he was unable to give any story, following one step commands, eyes blood shot, pupils dilated with horizontal bilateral nystagmus in both eyes, some rigidity but no clonus. On repeat examination he had woken up, agitation and rigidity resolved. He reports he drinks a 6 pack of 8% beer a day, never had any issues with alcohol withdrawal. He thinks last night he drank alcohol and took mushrooms but cannot remember what happened this morning. No answer on mothers phone with number in chart for collateral history. Collateral history from ER physician and ambulance notes - police called to his house by his mother because the patient ripped the washing machine out of the wall, water spilling all over basement, mother called 911, found on floor by police and became combative, EMS called and treated with IM ketamine - obtunded when he first came to the ER. Discharge Exam Constitutional WD/WN, vitals as above Eyes PERRL; no conjunctival abnormality and pupils not dilated Respiratory normal respiratory effort, lungs clear to auscultation Cardiovascular RRR, no murmur, no edema Gastrointestinal (Abdomen) normal bowel sounds, soft, nontender, no hepatosplenomegaly Musculoskeletal normal biztalk consultant strength, sensation in hand, finger extension/flexion Neurologic moves all extremities and awake; no focal motor deficits Psychiatric A+Ox3, euthymic affect Discharge Plan Discharge Items Patient Disposition: Home - Self-Care Reason For Visit: DRUG INTOXICATION Discharge Diagnosis: Drug and alcohol intoxication Mild rhabdomyolysis Condition on Discharge: Fair Activity: Resume your previous activity Non-emergency contact: Primary Care Provider Call non-emergency contact if: you have any medication questions and your symptoms worsen Follow-up/Referrals: PCP,NO [Primary Care Provider] - Diet: Regular Addtl Attending Provider Instructions: You were admitted to [facility] from August 072024 due to alcohol and drug intoxication. You were treated with midazolam in the emergency room and rapidly recovered. Use rest, ice and ibuprofen as needed for your right arm soft tissue injury. Continue to hydrated well with your mild rhabdomyolysis. Pending Studies at Discharge: No Stand-Alone Forms: My [facility] Resource Interactive, Smoking Cessation Medications and DC Order Prescriptions: Continued methadone 10 mg Tablet 90 mg PO DAILY Discharge Orders: Discharge Order (Routine); Ordered 08/08/25 Ordered By: Dennis Michaud Admission Data Admit Date/Time: 08/07/25 09:41 Attending Provider: Dennis Michaud Admit Provider: Dennis Michaud Primary Care Provider: PCP,NO Other Interventions: Discharge Summary Assessment (RN) Last Done: 08/08/25 11:22 Hospital Stay Data Consultations 08/07/25 09:03 ED Decision to Admit Stat Diagnostic Imagining Performed 08/07/25 07:10 CT abd pelvis IV con only Stat CT cervical spine wo con Stat CT chest diagnostic w con Stat CT head/brain wo con Stat Pending Results Patient Have Any Pending Studies at Discharge: No Discharge Instructions Given to Patient (Per Discharging Provider) You were admitted to [facility] from August 072024 due to alcohol and drug intoxication. You were treated with midazolam in the emergency room and rapidly recovered. Use rest, ice and ibuprofen as needed for your right arm soft tissue injury. Continue to hydrated well with your mild rhabdomyolysis. Total Time Total Time Spent Total Time Spent (In Minutes): 40 Coding Level of Care Code 24388 INP/OBS DISCH >30 MIN Diagnoses Chronic prescription opiate use Z79.891 Drug intoxication with delirium F19.921 Alcohol intoxication F10.929 Right wrist pain M25.531
[2025-08-08 11:23] VITALS: BP 155/96; PULSE 71
[2025-08-12 13:27] LABS: 7-Aminoclonaz, Confirm NEGATIVE ng/mL (<25); Hydro-Alp Ur, GC/MS NEGATIVE ng/mL (<25); Hydroxyethylflurazepam, Conf NEGATIVE ng/mL (<50); Hydroxymidazolam Ur, GC/MS 448 ng/mL (<50); Lorazepam, Ur GC/MS NEGATIVE ng/mL (<50); Methadone, Ur Metabolite 1447 ng/mL (<100); Methadone, Ur Verification 4158 ng/mL (<100); Nordiazepam, Confirm NEGATIVE ng/mL (<50); Oxazepam Ur, GC/MS NEGATIVE ng/mL (<50); Temazepam, Confirm NEGATIVE ng/mL (<50)
== END 2025-08-08 13:13 | disposition home or self-care (01) | DRG 897 ==
LOC: ED 07:03 → INTOOBSV 09:41 → 2E 09:41